=== PATIENT | male | born 1975 | race Two or more races ===

== ENCOUNTER 2023-02-26 23:59 | Emergency (ER) | payer BC ==
[~2023-02-26] VITALS: Ht 172.7 cm; Wt 82.6 kg
[2023-02-27 00:02] VITALS: BP 102/60; PULSE 102; RESP 16; TEMP 96.4; O2SAT 100
[2023-02-27] MEDS ORDERED: NACL 0.9% 1,000 ML IV ONE (01:15)
[2023-02-27 02:24] LABS: ALBUMIN 3.3 g/dL (3.4-5.0); ANION GAP 9.5 (8-16); BASOPHILS % (AUTO) 0.2 % (0.0-2.0); CALCIUM 9.4 mg/dL (8.5-10.1); CARBON DIOXIDE 29.7 mmol/L (21-32); CREATININE 2.1 mg/dL (0.6-1.3); EOSINOPHILS # (AUTO) 0.2 K/uL (0-0.4); HEMATOCRIT 35.9 % (36-52); LYMPHOCYTES # (AUTO) 2.1 K/uL (2.0-11.5); LYMPHOCYTES % (AUTO) 19.4 % (20.5-51.1); MEAN CORPUSCULAR HEMOGLOBIN 27 pg (27-31); MEAN CORPUSCULAR HGB CONC 34 g/dL (33-37); MEAN CORPUSCULAR VOLUME 80.6 fL (80-94); MONOCYTES # (AUTO) 0.9 K/uL (0.8-1.0); NEUTROPHILS # (AUTO) 7.7 K/uL (1.8-7.7); NEUTROPHILS % (AUTO) 70.4 % (42.2-75.2); PLATELET COUNT (AUTO) 280 K/uL (140-450); POTASSIUM 4.2 mmol/L (3.5-5.1); RED BLOOD CELL COUNT(AUTO) 4.45 MIL/uL (4.20-6.10); RED CELL DISTRIBUTION WIDTH 15.4 % (11.6-13.7); TOTAL BILIRUBIN 0.4 mg/dL (0.0-1.0); TOTAL PROTEIN, SERUM 7.2 g/dL (6.4-8.2)
[2023-02-27 04:41] VITALS: BP 102/60; PULSE 108; RESP 16; TEMP 96.4; O2SAT 100
== END 2023-02-27 04:41 | disposition home or self-care (01) ==
LOC: MED 23:59
DX: R42 Dizziness and giddiness (principal); R00.0 Tachycardia, unspecified; N17.9 Acute kidney failure, unspecified; I42.9 Cardiomyopathy, unspecified; Z88.0 Allergy status to penicillin; Z88.5 Allergy status to narcotic agent; Z88.8 Allergy status to other drugs, medicaments and biological substances; Z79.899 Other long term (current) drug therapy
CPT/HCPCS: 36415; 71045; 80053; 83880; 84484; 85025; 85379; 93005; 96360; 99285; J7030; Q0092